=== PATIENT | male | born 1990 | race Caucasian/White ===

== ENCOUNTER 2017-09-13 15:33 | Emergency (ER) | payer OTHER, MEDICAID ==
[~2017-09-13] VITALS: Ht 180.3 cm; Wt 72.6 kg
[2017-09-13 18:08] LABS: BASOPHIL % 0.4 % (0-2); PLATELET COUNT 220 x10^3mcL (130-400); RED CELL DISTRIBUTION WIDTH 13.5 % (11.5-14.5)
[2017-09-13 18:13] LABS: CALCIUM 9.2 mg/dL (8.5-10.1); CHLORIDE SERUM 106 mmol/L (98-107); CREATININE SERUM 0.9 mg/dL (0.7-1.3); GFR1 > 60 mL/min; GLUCOSE SERUM 91 mg/dL (74-106); POTASSIUM SERUM 3.8 mmol/L (3.5-5.1); SODIUM SERUM 141 mmol/L (136-145)
[2017-09-13 18:19] LABS: ALBUMIN 3.6 g/dL (3.4-5.0); ALKALINE PHOSPHATASE 92 U/L (46-116); ALT/SGPT 19 U/L (16-63); AST/SGOT 13 U/L (15-37); BILIRUBIN TOTAL 0.3 mg/dL (0.20-1.00); TOTAL PROTEIN, SERUM 6.8 g/dL (6.4-8.2)
[2017-09-13 21:31] VITALS: BP 103/60
== END 2017-09-13 21:31 ==
LOC: ED 15:33
PROVIDERS: Emergency Medicine
DX: G40.909 Epilepsy, unspecified, not intractable, without status epilepticus (principal); R89.2 Abnormal level of other drugs, medicaments and biological substances in specimens from other organs, systems and tissues; F32.9 Major depressive disorder, single episode, unspecified; Z86.59 Personal history of other mental and behavioral disorders
CPT/HCPCS: J1165; J2060

== ENCOUNTER 2019-05-08 10:25 | Emergency (ER) | payer OTHER ==
[~2019-05-08] VITALS: Ht 190.5 cm; Wt 113.9 kg
[2019-05-08 10:27] VITALS: Ht 190.5 cm; Wt 113.9 kg
[2019-05-08 13:56] VITALS: BP 110/70
== END 2019-05-08 13:56 | disposition home or self-care (01) ==
LOC: ED 10:25
DX: R07.89 Other chest pain (principal); R56.9 Unspecified convulsions; Z85.47 Personal history of malignant neoplasm of testis
CPT/HCPCS: J1885

== ENCOUNTER 2019-05-29 22:44 | Emergency (ER) | payer OTHER ==
[~2019-05-29] VITALS: Ht 190.5 cm; Wt 113.4 kg
[2019-05-29 22:53] VITALS: Ht 190.5 cm; Wt 113.4 kg
[2019-05-30 01:59] VITALS: BP 105/49
== END 2019-05-30 01:59 ==
LOC: ED 22:44
DX: G40.909 Epilepsy, unspecified, not intractable, without status epilepticus (principal)

== ENCOUNTER 2019-09-13 20:31 | Emergency (ER) | payer OTHER ==
[~2019-09-13] VITALS: Ht 193 cm; Wt 113.4 kg
[2019-09-13 20:41] VITALS: Ht 193 cm; Wt 113.4 kg
[2019-09-13 21:13] LABS: BASOPHIL % 0.1 % (0-2); PLATELET COUNT 246 x10^3mcL (130-400); RED CELL DISTRIBUTION WIDTH 15.2 % (11.5-14.5)
[2019-09-13 21:20] LABS: CALCIUM 9.2 mg/dL (8.5-10.1); CARBON DIOXIDE 27.2 mmol/L (21-32); CHLORIDE SERUM 103 mmol/L (98-107); CREATININE SERUM 0.8 mg/dL (0.7-1.3); GFR1 > 60 mL/min; GLUCOSE SERUM 100 mg/dL (74-106); POTASSIUM SERUM 3.8 mmol/L (3.5-5.1); SODIUM SERUM 141 mmol/L (136-145)
[2019-09-13 21:24] LABS: ALBUMIN 3.9 g/dL (3.4-5.0); ALKALINE PHOSPHATASE 66 U/L (46-116); ALT/SGPT 29 U/L (16-63); AST/SGOT 44 U/L (15-37); BILIRUBIN TOTAL 0.58 mg/dL (0.20-1.00); TOTAL PROTEIN, SERUM 7.4 g/dL (6.4-8.2)
[2019-09-14 02:34] VITALS: BP 134/74
== END 2019-09-14 02:32 | disposition home or self-care (01) ==
LOC: ED 20:31
PROVIDERS: Emergency Medicine
DX: R40.4 Transient alteration of awareness (principal)
CPT/HCPCS: C9113; G0480; J2405; J7030; Q0092

== ENCOUNTER 2019-09-20 09:49 | Emergency (ER) | payer OTHER ==
[~2019-09-20] VITALS: Ht 190.5 cm; Wt 113.4 kg
[2019-09-20 09:50] VITALS: Ht 190.5 cm; Wt 113.4 kg
[2019-09-20 12:34] VITALS: BP 107/80
== END 2019-09-20 12:34 | disposition short-term general hospital (02) ==
LOC: ED 09:49
DX: S09.90XA Unspecified injury of head, initial encounter (principal); Z88.6 Allergy status to analgesic agent; Z91.041 Radiographic dye allergy status; Z98.890 Other specified postprocedural states; W18.30XA Fall on same level, unspecified, initial encounter; Y93.89 Activity, other specified; Y92.89 Other specified places as the place of occurrence of the external cause; Y99.8 Other external cause status